=== PATIENT | male | born 1995 | race African-American/Black ===

== ENCOUNTER 2017-05-02 19:13 | Emergency (ER) | payer SELFPAY ==
[~2017-05-02] VITALS: Ht 185.4 cm; Wt 73.8 kg
[2017-05-02 20:03] LABS: HEMATOCRIT 46.4 % (38.0-50.0); HEMOGLOBIN 14.9 G/DL (12.5-16.6); MCH 26.8 PG (29.0-34.0); MCHC 32.1 G/DL (30.0-36.0); MCV 83.5 FL (86-99); PLATELET COUNT 322 K/uL (156-360); RBC DIS.WIDTH-SD 39.5 % (39-53); RED BLOOD COUNT 5.56 M/uL (4.00-5.50); WHITE BLOOD COUNT 9.4 K/uL (4.1-10.2)
[2017-05-02 20:14] LABS: ALBUMIN 4.7 g/dL (3.2-4.8); CHLORIDE 103 mEq/L (99-109); POTASSIUM 3.8 mEq/L (3.7-5.4); SODIUM 140 mEq/L (136-147)
[2017-05-02 20:16] LABS: GLUCOSE 88 mg/dL (70-99); TOTAL PROTEIN 8.2 g/dL (6.4-8.3)
[2017-05-02 20:18] LABS: TOTAL BILIRUBIN 0.6 mg/dL (0.0-1.0)
[2017-05-02 20:20] LABS: ALKALINE PHOSPHATASE 71 IU/L (3-129); CREATININE 1.2 mg/dL (0.6-1.3); GFR ESTIMATE (CALCULATED) > 59 mL/min/ (58.99-99999)
[2017-05-02 20:21] LABS: UREA NITROGEN (BUN) 10 mg/dL (9-23)
[2017-05-02 20:22] LABS: AST (GOT) 20 IU/L (2-34)
[2017-05-02 20:23] LABS: ALT (GPT) 15 IU/L (3-49); LIPASE 45 U/L (1.0-51.0)
[2017-05-02 23:51] LABS: APPEARANCE CLEAR ((CLEAR)); BILIRUBIN NEGATIVE; BLOOD NEGATIVE; COLOR YELLOW ((YELLOW)); GLUCOSE (STRIP) NEGATIVE; KETONES 20; LEUKOCYTES NEGATIVE; NITRITE NEGATIVE; PROTEIN (STRIP) 100; SPECIFIC GRAVITY 1.027 (1.000-1.030)
[2017-05-02 23:56] LABS: BACTERIA NONE SEEN /HPF; EPITHELIAL CELLS NONE SEEN /HPF; MUCUS 1+ /LPF; RED BLOOD CELLS 0-5 /HPF (0-5); UCUL ADDED? NO; WHITE BLOOD CELLS NONE SEEN /HPF (0-5)
[2017-05-03 01:01] VITALS: BP 110/68
== END 2017-05-03 01:02 | disposition home or self-care (01) ==
LOC: EME 19:13
PROVIDERS: Nurse Practitioner Family
DX: R11.2 Nausea with vomiting, unspecified (principal); R53.81 Other malaise; R10.84 Generalized abdominal pain; R42 Dizziness and giddiness; R53.1 Weakness
CPT/HCPCS: 80053; 81003; 83690; 85027; 87502; 99281; 99284

== ENCOUNTER 2017-08-05 21:48 | Emergency (ER) | payer SELFPAY ==
[~2017-08-05] VITALS: Ht 185.4 cm; Wt 76.7 kg
[2017-08-05] MEDS ORDERED: LIDOCAINE20 MG/1 M5 PO (23:54)
[2017-08-05] MEDS ORDERED: MOTRIN800 MG PO (23:54)
[2017-08-06 00:07] VITALS: BP 121/79
== END 2017-08-06 00:08 | disposition home or self-care (01) ==
LOC: EXP 21:48 → EME 21:48 → EXP 08-06 00:08
DX: B08.4 Enteroviral vesicular stomatitis with exanthem (principal); R50.9 Fever, unspecified; F32.9 Major depressive disorder, single episode, unspecified; F17.200 Nicotine dependence, unspecified, uncomplicated
CPT/HCPCS: 87651 90; 99281; 99284